=== PATIENT | female | born 1985 | race Caucasian/White ===

== ENCOUNTER 2020-11-22 13:54 | Outpatient (CLI) | payer BC, SELFPAY | END 2020-11-22 13:55 | disposition home or self-care (01) | LOC: ANHAUDIO 13:55 | PROVIDERS: PCP Internal Medicine; Visit Provider Otolaryngology | DX: H93.13 Tinnitus, bilateral (principal); H90.3 Sensorineural hearing loss, bilateral | CPT/HCPCS: 92557; 92567 ==